=== PATIENT | male | born 1995 | race Hispanic/Latino ===

== ENCOUNTER 2016-09-11 19:30 | Emergency (ER) | payer OTHER ==
[~2016-09-11] VITALS: Ht 182.9 cm; Wt 81.2 kg
[~2016-09-11 19:30] MED LIST: TRIAMCINOLONE0.025% TOP
[2016-09-11 19:34] VITALS: BP 106/66
[2016-09-11] MEDS ORDERED: KEFLEX500 M1 PO (21:23)
--- NOTE | 2016-09-11 21:23 | ED SKIN/ALLERGY COMPLAINT ---
History of Present Illness General Chief Complaint: Fall Stated Complaint: PT FELL AND HIT HIS HEAD Source: patient Exam Limitations: no limitations Vital Signs & Intake/Output Vital Signs & Intake/Output Vital Signs Date Time Temp Pulse Resp B/P B/P Pulse O2 O2 Flow FiO2 Mean Ox Delivery Rate 09/11 2113 98 Room Air 09/11 1933 97.7 60 18 106/66 96 Room Air Allergies Coded Allergies: amoxicillin (Intermediate, HIVES 11/11/15) pineapple (Intermediate, TOUNGE SWELLING 11/11/15) venom-honey bee (BEE VENOM (HONEY BEE)) (Intermediate, RED, DIZZY, VOMITING ) Uncoded Allergies: PET HAIR/DANDER (RASH, SNEEZING 03/29/14) Triage Note: PT TO ED C/O LACERATION TO TOP OF HEAD 2 DAYS AGO FROM HITTING HEAD ON WOOD FRAME WHILE RUNNING UP THE STAIRS. DENIES LOC, DENIES N/V/VISION CHANGES. STATES CAME TO ED BECAUSE "IT KEEPS BLEEDING" HAS BRUISE TO LEFT CHEEK Triage Nurses Notes Reviewed? yes HPI: This patient is a 21-year-old male who presented to the emergency department today accompanied by his mother for evaluation of a laceration to the left aspect of his head. He reported that he hit his head on a wooden beam while he was walking up stairs 2 days ago. He reported that it has been continually bleeding. He denied any fevers or chills. No headaches or visual changes. No syncope, dizziness, lightheadedness, nausea, vomiting, or any other associated symptoms. This patient is up-to-date on his tetanus immunization per his mother. (ZAC ACEVEDO,THIEN) Reconcile Medications Cephalexin (Keflex) 500 MG CAPSULE 1 CAP PO TID PRN LACERATION (KENNY CATHERINE MD) Past History Travel History Traveled to [place] past 21 day No Medical History Any Pertinent Medical History? 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 No (THIEN FRANK PA-C) Review of Systems Review of Systems Constitutional: Reports: no symptoms. EENTM: Reports: no symptoms. Respiratory: Reports: no symptoms. Cardiovascular: Reports: no symptoms. GI: Reports: no symptoms. Musculoskeletal: Reports: no symptoms. Skin: Reports: see HPI. Neurological/Psychological: Reports: no symptoms. All Other Systems: Reviewed and Negative (THIEN FRANK PA-C) Physical Exam Physical Exam General Appearance: well developed/nourished, no apparent distress, alert, awake Comments: Well-developed well-nourished person in no acute distress HEENT: Normal EENT exam, head normocephalic, approximately 2 cm in length, linear, subcutaneous laceration to the left aspect scalp with minimal active bleeding. No surrounding erythema or edema. No foreign body in the wound site. Nontender to palpation PERRLA bilaterally Neck: Supple, no midline tenderness Back: Normal gait Respiratory: No respiratory distress. Speaking in full sentences Extremity: Normal equal pulses Neuro: Alert oriented x3, motor sensory normal, cranial nerves II through XII grossly intact. No focal neurologic deficits Skin: No appreciable rash on exposed skin, skin is warm and dry. Psych: Mood and affect is normal, memory and judgment is normal. (THIEN FRANK PA-C) Progress Differential Diagnosis: abscess/cellulitis, CONCUSSION, SKIN LACERATION, SKIN TEAR, SKIN AVULSION Plan of Care: This patient is a 21-year-old male who presented for evaluation of laceration to his scalp. 2 roman were placed to the wound. Patient tolerated the procedure well. The patient was first prepped with bacitracin and irrigated extensively with sterile water. Patient was instructed to return for staple removal. Instructed to keep the wound site clean and dry. (THIEN FRANK PA-C) Departure Departure Disposition: HOME OR SELF CARE Condition: Stable Clinical Impression Primary Impression: Laceration Referrals: TRANG MALIN,RJ (PCP/Family) Additional Instructions: Please keep the wound site clean and dry. You may reapply bacitracin to the wound as needed. Return in 3-5 days for a wound check and staple removal. Return sooner for any worsening symptoms, fevers, chills, pus drainage from the wound site, or for any other concerns. Take antibiotic as prescribed. Departure Forms: Customer Survey General Discharge Information Prescriptions: Current Visit Scripts Cephalexin (Keflex) 1 CAP PO TID PRN LACERATION #15 CAP (ZAC ACEVEDO,THIEN) PA/PRODUCTION FINISHER Co-Sign Statement Statement: ED Attending supervision documentation- [] I saw and evaluated the patient. I have also reviewed all the pertinent lab results and diagnostic results. I agree with the findings and the plan of care as documented in the PA's/PRODUCTION FINISHER's documentation. x I have reviewed the ED Record and agree with the PA's/PRODUCTION FINISHER's documentation. [] Additions or exceptions (if any) to the PAs/PRODUCTION FINISHER's note and plan are summarized below: [] (FLORIN MALIN,KENNY)
== END 2016-09-11 21:48 ==
LOC: ERH 19:30
DX: S01.01XA Laceration without foreign body of scalp, initial encounter (principal); W22.8XXA Striking against or struck by other objects, initial encounter; Y92.9 Unspecified place or not applicable; Y93.9 Activity, unspecified

== ENCOUNTER 2016-09-16 18:13 | Emergency (ER) | payer OTHER ==
[~2016-09-16 18:13] MED LIST changes: +KEFLEX500 M1 PO
[2016-09-16 18:27] VITALS: BP 121/75
--- NOTE | 2016-09-16 18:30 | ED ANIMAL BITE/WOUND CHECK ---
History of Present Illness General Chief Complaint: Suture Removal/Wound Recheck Stated Complaint: PT IS HERE TO HAVE HIS ROMAN REMOVE Source: patient, old records Exam Limitations: no limitations Vital Signs & Intake/Output Vital Signs & Intake/Output Vital Signs Date Time Temp Pulse Resp B/P B/P Pulse O2 O2 Flow FiO2 Mean Ox Delivery Rate 09/16 1827 98.9 80 16 121/75 98 Room Air Room Air Allergies Coded Allergies: amoxicillin (Intermediate, HIVES 09/16/16) pineapple (Intermediate, TOUNGE SWELLING 09/16/16) venom-honey bee (BEE VENOM (HONEY BEE)) (Intermediate, RED, DIZZY, VOMITING 07/04) Uncoded Allergies: PET HAIR/DANDER (RASH, SNEEZING 03/29/14) Reconcile Medications Cephalexin (Keflex) 500 MG CAPSULE 1 CAP PO TID PRN LACERATION Triage Note: PT HERE FOR 2 ROMAN TO BE REMOVED, WOUND IS APPROXIMATED WITH NO SIGNS OF INFECTION Triage Nurses Notes Reviewed? yes HPI: Patient is a 21-year-old male presents requesting staple removal from his left scalp. Patient sustained a laceration on September 11 and had 2 roman placed at [facility]. Pain is 0 out of 10. Patient denies headache, fevers, drainage from the wound. (GISELA VINCENT) Past History Travel History Traveled to [place] past 21 day No Medical History Any Pertinent Medical History? 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 No (GISELA VINCENT) Review of Systems Review of Systems Constitutional: Denies: chills, fever. EENTM: Denies: blurred vision. GI: Denies: vomiting. Musculoskeletal: Reports: no symptoms. Skin: Reports: see HPI. Neurological/Psychological: Denies: headache, numbness. Hematologic/Endocrine: Denies: bruising, bleeding. Immunologic/Allergic: Denies: splenectomy. (GISELA VINCENT) Physical Exam Physical Exam General Appearance: well developed/nourished, alert, awake Head: 1 cm laceration to left superior scalp. No surrounding tenderness, no erythema, no drainage. wound well approximated. Eyes: Bilateral: normal appearance, PERRL, EOMI. Ears, Nose, Throat: hearing grossly normal Neck: normal inspection, full range of motion Respiratory: no respiratory distress Back: normal inspection, normal range of motion Extremities: normal range of motion Neurologic/Psych: no motor/sensory deficits, awake, alert, oriented x 3, normal gait, normal mood/affect Skin: normal color, warm/dry (GISELA VINCENT) Progress Differential Diagnosis: staple removal, wound infection Plan of Care: No signs of infection, wound well approximated. [place] removed. (GISELA VINCENT) Departure Departure Time of Disposition: 1833 Disposition: HOME OR SELF CARE Condition: Stable Clinical Impression Primary Impression: Removal of roman Referrals: TRANG MALIN,RJ (PCP/Family) Additional Instructions: Continue be gentle to the wound as it will continue to heal for several weeks. Return to the emergency department if you develop any pain, pus from the wounds, fevers, or worsening of symptoms. Departure Forms: Customer Survey General Discharge Information (GISELA VINCENT) PA/DEMONSTRATOR SALES Co-Sign Statement Statement: ED Attending supervision documentation- [] I saw and evaluated the patient. I have also reviewed all the pertinent lab results and diagnostic results. I agree with the findings and the plan of care as documented in the PA's/DEMONSTRATOR SALES's documentation. x I have reviewed the ED Record and agree with the PA's/DEMONSTRATOR SALES's documentation. [] Additions or exceptions (if any) to the PAs/DEMONSTRATOR SALES's note and plan are summarized below: [] (FLORIN MALIN,KENNY)
== END 2016-09-16 18:34 ==
LOC: ERH 18:13
DX: S01.01XA Laceration without foreign body of scalp, initial encounter (principal); X58.XXXA Exposure to other specified factors, initial encounter; Y92.9 Unspecified place or not applicable; Y93.9 Activity, unspecified
CPT/HCPCS: 99281